=== PATIENT | female | born 1990 | race African-American/Black ===

== ENCOUNTER 2018-06-26 12:10 | Emergency (ER) | payer SELFPAY ==
[~2018-06-26] VITALS: Ht 162.6 cm; Wt 86.2 kg
[2018-06-26 12:13] VITALS: BP 120/60
[2018-06-26] MEDS ORDERED: ALBUTEROL SULFATE 2.5 MG/3 ML NEBU. ONE (12:22)
[2018-06-26] MEDS ORDERED: ALBUTEROL SULFATE 2.5 MG/3 ML NEBU. NEB ONE (12:30)
--- NOTE | 2018-06-26 13:44 | PHYS DOC ---
Past Medical History Past Medical History: Asthma Past Surgical History: Other Additional Past Surgical Histo: D&C Alcohol Use: Rarely Drug Use: None Adult General Chief Complaint Chief Complaint: ASTHMA HPI HPI Patient is a 27 year old female who presents with an acute asthma attack. The patient states that she had a prescription for an albuterol inhaler but she lost it. She started having wheezing and shortness of air that has increased. She is currently unable to make complete sentences. Review of Systems Review of Systems Constitutional: Denies fever or chills [] Eyes: Denies change in visual acuity, redness, or eye pain [] HENT: Denies nasal congestion or sore throat [] Respiratory: See history of present illness Cardiovascular: No additional information not addressed in HPI [] Neurologic: Denies headache, focal weakness or sensory changes [] Endocrine: Denies polyuria or polydipsia [] All other systems were reviewed and found to be within normal limits, except as documented in this note. Current Medications Current Medications Current Medications Medications (Trade) Dose Ordered Sig/Benedict Start Time Stop Time Status Last Admin Dose Admin Albuterol Sulfate (Ventolin Neb Soln) 2.5 mg STK-MED ONCE 06/26/18 12:22 06/26/18 12:23 DC Allergies Allergies Allergies Coded Allergies Type Severity Reaction Last Updated Verified Penicillins Allergy Unknown 06/26/18 Yes codeine Allergy Unknown 06/26/18 Yes Physical Exam Physical Exam Constitutional: Well developed, well nourished, no acute distress, non-toxic appearance. [] HENT: Normocephalic, atraumatic, bilateral external ears normal, oropharynx moist, no oral exudates, nose normal. [] Eyes: PERRLA, EOMI, conjunctiva normal, no discharge. [] Neck: Normal range of motion, no tenderness, supple, no stridor. [] Cardiovascular:Heart rate regular rhythm, no murmur [] Lungs & Thorax: Bilateral breath sounds show wheezing throughout. Abdomen: Bowel sounds normal, soft, no tenderness, no masses, no pulsatile masses. [] Neurologic: Alert and oriented X 3, normal motor function, normal sensory function, no focal deficits noted. [] Psychologic: Affect normal, judgement normal, mood normal. [] Current Patient Data Vital Signs Vital Signs Date Time Temp Pulse Resp B/P (MAP) Pulse Ox O2 Delivery O2 Flow Rate FiO2 06/26/18 12:26 98 Room Air 06/26/18 12:13 98.1 88 16 120/60 (80) 98.1 EKG EKG [] Radiology/Procedures Radiology/Procedures [] Course & Med Decision Making Course & Med Decision Making Pertinent Labs and Imaging studies reviewed. (See chart for details) []The patient received an albuterol treatment in the emergency department, she then left without informing any staff that she was leaving the building. Dragon Disclaimer Dragon Disclaimer This electronic medical record was generated, in whole or in part, using a voice recognition dictation system. 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 I was available for consultation as needed during the patient's visit in the emergency department. I agree with the clinical impression, plan, and disposition. Problem Qualifiers SALVATORE OGLESBY APRN Jun 26, 2018 13:44 JESSICA MELARA DO Jun 27, 2018 13:53
== END 2018-06-26 12:55 | disposition left against medical advice (07) ==
LOC: ER 12:10
DX: J45.901 Unspecified asthma with (acute) exacerbation (principal); Z88.5 Allergy status to narcotic agent; Z88.0 Allergy status to penicillin
CPT/HCPCS: 94640; 99283; J7613

== ENCOUNTER 2018-06-30 07:17 | Emergency (ER) | payer SELFPAY ==
[~2018-06-30] VITALS: Ht 165.1 cm; Wt 86.2 kg
[2018-06-30 07:18] VITALS: BP 154/70
[2018-06-30] MEDS ORDERED: IPRATRPIUM/ALBUTEROL 0.5/2.5MG 3 ML NEBU. ONE (07:25)
--- NOTE | 2018-06-30 07:28 | PHYS DOC ---
Past Medical History Past Medical History: Asthma Past Surgical History: Other Additional Past Surgical Histo: D&C Alcohol Use: Rarely Drug Use: None Adult General Chief Complaint Chief Complaint: ASTHMA HPI HPI Patient is a 27 year old female presenting with asthma exacerbation. She ran out of her rescue inhaler last night she really has not been sick she just woke up very short of breath coughing white sputum no fever history limited by respiration status Review of Systems Review of Systems Limited by respiration stress Current Medications Current Medications Current Medications Medications (Trade) Dose Ordered Sig/Benedict Start Time Stop Time Status Last Admin Dose Admin Albuterol Sulfate (Ventolin Neb Soln) 10 mg 1X ONCE 06/30/18 08:00 06/30/18 08:01 DC 06/30/18 08:00 10 MG Albuterol/ Ipratropium (Duoneb) 3 ml 1X ONCE 06/30/18 08:00 06/30/18 08:01 DC 06/30/18 07:32 3 ML Prednisone (Prednisone) 50 mg 1X ONCE 06/30/18 08:00 06/30/18 08:01 DC 06/30/18 07:32 50 MG Allergies Allergies Allergies Coded Allergies Type Severity Reaction Last Updated Verified Penicillins Allergy Unknown 06/26/18 Yes codeine Allergy Unknown 06/26/18 Yes Physical Exam Physical Exam Constitutional: Well developed, well nourished, distress, non-toxic appearance. [] HENT: Normocephalic, atraumatic, bilateral external ears normal, oropharynx moist, no oral exudates, nose normal. [] Eyes: PERRLA, EOMI, conjunctiva normal, no discharge. [] Neck: Normal range of motion, no tenderness, supple, no stridor. [] Cardiovascular:Heart rate regular rhythm, no murmur [] Lungs & Thorax: Wheezing bilaterally with respiratory distress noted speaking 2- 3 word sentences Abdomen: Bowel sounds normal, soft, no tenderness, no masses, no pulsatile masses. [] Skin: Warm, dry, no erythema, no rash. [] Back: No tenderness, no CVA tenderness. [] Extremities: No tenderness, no cyanosis, no clubbing, ROM intact, no edema. [] Neurologic: Alert and oriented X 3, normal motor function, normal sensory function, no focal deficits noted. [] Psychologic: Affect normal, judgement normal, mood normal. [] Current Patient Data Vital Signs Vital Signs Date Time Temp Pulse Resp B/P (MAP) Pulse Ox O2 Delivery O2 Flow Rate FiO2 06/30/18 07:54 98 Room Air 06/30/18 07:18 97.9 87 24 154/70 (98) 97.9 EKG EKG [] Radiology/Procedures Radiology/Procedures [] Course & Med Decision Making Course & Med Decision Making Pertinent Labs and Imaging studies reviewed. (See chart for details) []Patient is feeling much better after albuterol treatment in the emergency room chest x-ray is negative prescription for prednisone and albuterol was provided. Impressions were discussed patient voiced understanding. Dragon Disclaimer Dragon Disclaimer This electronic medical record was generated, in whole or in part, using a voice recognition dictation system. Departure Departure Impression: Primary Impression: Asthma Disposition: 01 HOME, SELF-CARE Condition: IMPROVED Referrals: UNKNOWN PCP NAME (PCP) Scripts Albuterol Sulfate (Proair Respiclick) 90 Mcg Aer.pow.ba 1 PUFF IH PRN Q6HRS PRN for SHORTNESS OF BREATH, #1 INHALER Prov: STORM GALLO MD 06/30/18 Prednisone (PREDNISONE) 50 Mg Tablet 1 TAB PO DAILY, #5 TAB Prov: STORM GALLO MD 06/30/18 STORM GALLO MD Jun 30, 2018 07:28
[2018-06-30] MEDS ORDERED: PRED50TA PO (07:29)
[2018-06-30] MEDS ORDERED: PROAIR RESPICL90 MCG IH (07:29)
[2018-06-30] MEDS ORDERED: IPRATRPIUM/ALBUTEROL 0.5/2.5MG 3 ML NEBU. NEB ONE (08:00)
[2018-06-30] MEDS ORDERED: ALBUTEROL SULFATE 2.5 MG/3 ML NEBU. CONT NEB ONE (08:00)
[2018-06-30] MEDS ORDERED: predniSONE 10 MG TABLET PO ONE (08:00)
--- NOTE | 2018-06-30 08:02 | RAD ---
Chest radiograph 06/30/2018 7:33 AM INDICATION: Shortness of air with history of asthma COMPARISON: None available TECHNIQUE: Portable upright frontal view of the chest is provided. FINDINGS: The cardiomediastinal silhouette is within normal limits. There are no pleural effusions. There is no pulmonary vascular congestion. There is no pneumothorax. The lungs are clear. Remote left clavicular deformity is visualized. IMPRESSION: No acute cardiopulmonary process. Electronically signed by: Bina Schulte MD (06/30/2018 7:58 AM) [facility]
== END 2018-06-30 08:56 | disposition home or self-care (01) ==
LOC: ER 07:17
DX: J45.901 Unspecified asthma with (acute) exacerbation (principal); Z88.0 Allergy status to penicillin; Z88.5 Allergy status to narcotic agent
CPT/HCPCS: 71045; 94644; 99285; J7512; J7613; J7620; 94640

== ENCOUNTER 2018-07-14 05:19 | Emergency (ER) | payer SELFPAY ==
[~2018-07-14] VITALS: Ht 165.1 cm; Wt 86.2 kg
[~2018-07-14 05:19] MED LIST: PRED50TA PO; PROAIR RESPICL90 MCG IH
--- NOTE | 2018-07-14 05:36 | PHYS DOC ---
Past Medical History Past Medical History: Asthma Past Surgical History: Other Additional Past Surgical Histo: D&C Alcohol Use: Rarely Drug Use: None Adult General Chief Complaint Chief Complaint: SHORTNESS OF BREATH HPI HPI Patient is a 27 year old f with cc of sob woke up with it has been intubated ran out of asthma meds recently no fever or recent illnesses coughing symptoms moderate worsening with tiem Review of Systems Review of Systems Constitutional: Denies fever or chills [] Cardiovascular: No additional information not addressed in HPI [] Musculoskeletal: Denies back pain or joint pain [] Integument: Denies rash or skin lesions [] Neurologic: Denies headache, focal weakness or sensory changes [] Endocrine: Denies polyuria or polydipsia [] All other systems were reviewed and found to be within normal limits, except as documented in this note. Current Medications Current Medications Current Medications Medications (Trade) Dose Ordered Sig/Benedict Start Time Stop Time Status Last Admin Dose Admin Albuterol/ Ipratropium (Duoneb) 3 ml 1X ONCE 07/14/18 06:45 07/14/18 06:46 DC 07/14/18 06:45 3 ML Prednisone (Prednisone) 50 mg 1X ONCE 07/14/18 05:45 07/14/18 05:46 DC 07/14/18 05:40 50 MG Allergies Allergies Allergies Coded Allergies Type Severity Reaction Last Updated Verified Penicillins Allergy Unknown 06/26/18 Yes codeine Allergy Unknown 06/26/18 Yes Physical Exam Physical Exam Constitutional: Well developed, well nourished, midl resp distress, non-toxic appearance. [] HENT: Normocephalic, atraumatic, bilateral external ears normal, oropharynx moist, no oral exudates, nose normal. [] Eyes: PERRLA, EOMI, conjunctiva normal, no discharge. [] Neck: Normal range of motion, no tenderness, supple, no stridor. [] Cardiovascular:Heart rate regular rhythm, no murmur [] Lungs & Thorax: wheezing noted with increased respiratory effort. speaking short sentences Abdomen: Bowel sounds normal, soft, no tenderness, no masses, no pulsatile masses. [] Skin: Warm, dry, no erythema, no rash. [] Back: No tenderness, no CVA tenderness. [] Extremities: No tenderness, no cyanosis, no clubbing, ROM intact, no edema. [] Neurologic: Alert and oriented X 3, normal motor function, normal sensory function, no focal deficits noted. [] Psychologic: Affect normal, judgement normal, mood normal. [] Current Patient Data Vital Signs Vital Signs Date Time Temp Pulse Resp B/P (MAP) Pulse Ox O2 Delivery O2 Flow Rate FiO2 07/14/18 08:25 102 15 105/58 (74) 96 Room Air 07/14/18 05:25 97.9 97.9 Lab Values Laboratory Tests Test 07/14/18 05:40 White Blood Count 7.1 x10^3/uL (4.0-11.0) Red Blood Count 4.59 x10^6/uL (3.50-5.40) Hemoglobin 11.6 g/dL (12.0-15.5) L Hematocrit 36.4 % (36.0-47.0) Mean Corpuscular Volume 79 fL (79-100) Mean Corpuscular Hemoglobin 25 pg (25-35) Mean Corpuscular Hemoglobin Concent 32 g/dL (31-37) Red Cell Distribution Width 15.5 % (11.5-14.5) H Platelet Count 179 x10^3/uL (140-400) Neutrophils (%) (Auto) 52 % (31-73) Lymphocytes (%) (Auto) 26 % (24-48) Monocytes (%) (Auto) 17 % (0-9) H Eosinophils (%) (Auto) 4 % (0-3) H Basophils (%) (Auto) 0 % (0-3) Neutrophils # (Auto) 3.7 x10^3uL (1.8-7.7) Lymphocytes # (Auto) 1.9 x10^3/uL (1.0-4.8) Monocytes # (Auto) 1.2 x10^3/uL (0.0-1.1) H Eosinophils # (Auto) 0.3 x10^3/uL (0.0-0.7) Basophils # (Auto) 0.0 x10^3/uL (0.0-0.2) Sodium Level 141 mmol/L (136-145) Potassium Level 4.3 mmol/L (3.5-5.1) Chloride Level 107 mmol/L (98-107) Carbon Dioxide Level 24 mmol/L (21-32) Anion Gap 10 (6-14) Blood Urea Nitrogen 23 mg/dL (7-20) H Creatinine 0.8 mg/dL (0.6-1.0) Estimated GFR (Cockcroft-Gault) 104.1 BUN/Creatinine Ratio 29 (6-20) H Glucose Level 87 mg/dL (70-99) Calcium Level 8.7 mg/dL (8.5-10.1) Total Bilirubin 0.3 mg/dL (0.2-1.0) Aspartate Amino Transferase (AST) 37 U/L (15-37) Alanine Aminotransferase (ALT) 31 U/L (14-59) Alkaline Phosphatase 57 U/L (46-116) Total Protein 6.8 g/dL (6.4-8.2) Albumin 2.9 g/dL (3.4-5.0) L Albumin/Globulin Ratio 0.7 (1.0-1.7) L Laboratory Tests 07/14/18 05:40 Laboratory Tests 07/14/18 05:40 EKG EKG [] Radiology/Procedures Radiology/Procedures [][facility] [address] [place] [address] IMAGING REPORT Signed PATIENT: THERESE CARLSON ACCOUNT: [id number] : 1990 LOCATION: ER AGE: 27 SEX: F EXAM STATUS: REG ER ORD. PHYSICIAN: STORM GALLO MD REASON: sob PROCEDURE: PORTABLE CHEST 1V AP chest x-ray HISTORY: Shortness of breath and cough, history of asthma. COMPARISON: Chest x-ray June 30, 2018. FINDINGS: Heart size normal. Mediastinal silhouette is normal. No pneumothorax, pulmonary opacities or pleural effusions. Old healed left clavicle fracture with deformity. IMPRESSION: No acute process. Electronically signed by: Solitario Sam MD (07/14/2018 7:40 AM) [facility] DICTATED and SIGNED BY: SOLITARIO SAM MD DATE: 07/14/18 0739 Course & Med Decision Making Course & Med Decision Making Pertinent Labs and Imaging studies reviewed. (See chart for details) asthma , duoneb prednisone, cxr. (2 AM sign out younger pending re-eval labs and cxr[] Patient felt much better at this time. She took the IV out herself, wanted to be discharged JOCELINE. Ramon Disclaimer Ramon Disclaimer This electronic medical record was generated, in whole or in part, using a voice recognition dictation system. Departure Departure Impression: Primary Impression: Asthma exacerbation Disposition: HOME, SELF-CARE Condition: IMPROVED Referrals: NO PCP (PCP) follow up with your family doctor next week for reevaluation. Patient Instructions: Asthma Attacks, Prevention, Asthma, Adult Scripts Prednisone (PREDNISONE ) 10 Mg Tablet 40 MG PO DAILY for 7 Days, #28 TAB 0 Refills Prov: MARCOS YOUNGER DO 07/14/18 STORM GALLO MD Jul 14, 2018 05:36 MARCOS YOUNGER DO Jul 14, 2018 08:40
[2018-07-14] MEDS ORDERED: predniSONE 10 MG TABLET PO ONE (05:45)
[2018-07-14] MEDS ORDERED: IPRATRPIUM/ALBUTEROL 0.5/2.5MG 3 ML NEBU. NEB ONE ×2 (05:45→06:45)
[2018-07-14 06:06] LABS: BASO % 0 % (0-3); EOS # 0.3 x10^3/uL (0.0-0.7); EOS % 4 % (0-3); HEMATOCRIT 36.4 % (36.0-47.0); HEMOGLOBIN 11.6 g/dL (12.0-15.5); LYMPH # 1.9 x10^3/uL (1.0-4.8); LYMPH % 26 % (24-48); MEAN CORPUSCULAR HEMOGLOBIN 25 pg (25-35); MEAN CORPUSCULAR HGB CONC 32 g/dL (31-37); MEAN CORPUSCULAR VOLUME 79 fL (79-100); MONO # 1.2 x10^3/uL (0.0-1.1); MONO % 17 % (0-9); NEUT # 3.7 x10^3uL (1.8-7.7); NEUT % 52 % (31-73); PLATELET COUNT 179 x10^3/uL (140-400); RED BLOOD COUNT 4.59 x10^6/uL (3.50-5.40); RED CELL DISTRIBUTION WIDTH 15.5 % (11.5-14.5); WHITE BLOOD COUNT 7.1 x10^3/uL (4.0-11.0)
[2018-07-14 06:50] LABS: ALBUMIN 2.9 g/dL (3.4-5.0)
[2018-07-14 06:55] LABS: ALBUMIN/GLOBULIN RATIO 0.7 (1.0-1.7); CALCIUM 8.7 mg/dL (8.5-10.1); CREATININE 0.8 mg/dL (0.6-1.0); GFR 104.1; POTASSIUM 4.3 mmol/L (3.5-5.1); TOTAL BILIRUBIN 0.3 mg/dL (0.2-1.0); TOTAL PROTEIN 6.8 g/dL (6.4-8.2)
--- NOTE | 2018-07-14 07:45 | RAD ---
AP chest x-ray HISTORY: Shortness of breath and cough, history of asthma. COMPARISON: Chest x-ray June 30, 2018. FINDINGS: Heart size normal. Mediastinal silhouette is normal. No pneumothorax, pulmonary opacities or pleural effusions. Old healed left clavicle fracture with deformity. IMPRESSION: No acute process. Electronically signed by: Mina Sam MD (07/14/2018 7:40 AM) [facility]
[2018-07-14 08:25] VITALS: BP 105/58
[2018-07-14] MEDS ORDERED: PRED-220 PO (08:40)
== END 2018-07-14 08:51 | disposition home or self-care (01) ==
LOC: ER 05:19
DX: J45.901 Unspecified asthma with (acute) exacerbation (principal); Z88.0 Allergy status to penicillin; Z88.5 Allergy status to narcotic agent
CPT/HCPCS: 36415; 71045; 80053; 85025; 94640; 99284; J7512; J7620

== ENCOUNTER 2018-07-31 03:47 | Emergency (ER) | payer SELFPAY ==
[~2018-07-31] VITALS: Ht 165.1 cm; Wt 86.2 kg
[~2018-07-31 03:47] MED LIST changes: +PRED-220 PO
[2018-07-31] MEDS ORDERED: IPRATRPIUM/ALBUTEROL 0.5/2.5MG 3 ML NEBU. ONE (03:53)
[2018-07-31] MEDS: IPRATRPIUM/ALBUTEROL 0.5/2.5MG 3 ML NEBU. NEB ONE (03:53)
[2018-07-31] MEDS: ALBUTEROL SULFATE 2.5 MG/3 ML NEBU. NEB ONE (04:06)
[2018-07-31 05:00] VITALS: BP 134/65
[2018-07-31] MEDS ORDERED: METH4TAB2 PO (05:12)
--- NOTE | 2018-07-31 05:12 | PHYS DOC ---
Past Medical History Past Medical History: Asthma Past Surgical History: Other Additional Past Surgical Histo: D&C Alcohol Use: Rarely Drug Use: None Adult General Chief Complaint Chief Complaint: ASTHMA HPI HPI Patient is a 27-year-old female who presents with complaint of asthma exacerbation that started yesterday and has progressively gotten worse. Patient states that she has been using her inhaler at home without relief. She admits to dry cough but is had no fever. Patient states that she is not sure what triggered this current episode. She thinks that it may have been the weather. Any chest pain but does complain of shortness of breath. Review of Systems Review of Systems Constitutional: Denies fever or chills [] HENT: Denies nasal congestion or sore throat [] Respiratory: Complains of dry cough, wheezing and shortness of breath [] Cardiovascular: No additional information not addressed in HPI [] Integument: Denies rash or skin lesions [] Current Medications Current Medications Current Medications Medications (Trade) Dose Ordered Sig/Benedict Start Time Stop Time Status Last Admin Dose Admin Albuterol Sulfate (Ventolin Neb Soln) 5 mg 1X ONCE 07/31/18 04:00 07/31/18 04:05 DC 07/31/18 04:06 5 MG Albuterol/ Ipratropium (Duoneb) 3 ml 1X ONCE 07/31/18 04:00 07/31/18 04:05 DC 07/31/18 03:53 3 ML Allergies Allergies Allergies Coded Allergies Type Severity Reaction Last Updated Verified Penicillins Allergy Unknown 06/26/18 Yes codeine Allergy Unknown 06/26/18 Yes Physical Exam Physical Exam Constitutional: Well developed, well nourished, no acute distress, non-toxic appearance. [] HENT: Normocephalic, atraumatic, bilateral external ears normal, oropharynx moist, no oral exudates, nose normal. [] Neck: Normal range of motion, no tenderness, supple, no stridor. [] Cardiovascular: Mildly tachycardic rate with regular rhythm [] Lungs & Thorax: Decreased breath sounds are noted bilaterally with coarse inspiratory and expiratory wheezes to auscultation [] Skin: Warm, dry, no erythema, no rash. [] Extremities: No tenderness, no cyanosis, no clubbing, ROM intact, no edema. [] Current Patient Data Vital Signs Vital Signs Date Time Temp Pulse Resp B/P (MAP) Pulse Ox O2 Delivery O2 Flow Rate FiO2 07/31/18 04:08 99 Room Air 07/31/18 03:55 97.6 87 24 125/60 (81) 97.6 EKG EKG [] Radiology/Procedures Radiology/Procedures [] Course & Med Decision Making Course & Med Decision Making Pertinent Labs and Imaging studies reviewed. (See chart for details) [] Dragon Disclaimer Dragon Disclaimer This electronic medical record was generated, in whole or in part, using a voice recognition dictation system. Departure Departure Impression: Primary Impression: Asthma Disposition: HOME, SELF-CARE Condition: STABLE Referrals: NO PCP (PCP) Patient Instructions: Asthma, Adult Scripts Methylprednisolone (MEDROL) 4 Mg Tab.ds.pk 1 PKG PO UD, #1 PKG Prov: COLBY CALDERA Jr. DO 07/31/18 Problem Qualifiers Primary Impression: Asthma Asthma severity: unspecified severity Asthma persistence: unspecified Asthma complication type: with acute exacerbation Qualified Codes: J45.901 - Unspecified asthma with (acute) exacerbation COLBY CALDERA Jr. DO Jul 31, 2018 05:12
== END 2018-07-31 05:30 | disposition home or self-care (01) ==
LOC: ER 03:47
DX: J45.901 Unspecified asthma with (acute) exacerbation (principal); R00.0 Tachycardia, unspecified; Z88.0 Allergy status to penicillin; Z88.5 Allergy status to narcotic agent
CPT/HCPCS: 94640; 99284; J7613; J7620

== ENCOUNTER 2020-03-20 05:14 | Emergency (ER) | payer SELFPAY ==
[~2020-03-20] VITALS: Ht 157.5 cm; Wt 50.0 kg
[~2020-03-20 05:14] MED LIST changes: +METH4TAB2 PO
[2020-03-20] MEDS ORDERED: MAGNESIUM SULFATE 2GM 50 ML IV ONE (05:30)
[2020-03-20] MEDS ORDERED: IPRATRPIUM/ALBUTEROL 0.5/2.5MG 3 ML NEBU. NEB ONE (05:30)
[2020-03-20] MEDS ORDERED: methylPREDNISolone SOD SUCC PF 125 MG/2 ML VIAL. IV ONE (05:30)
--- NOTE | 2020-03-20 05:36 | PHYS DOC ---
Past Medical History Past Medical History: Asthma (EL BENDER DO) Past Surgical History: Other Additional Past Surgical Histo: D&C (EL BENDER DO) Smoking Status: Never Smoker Alcohol Use: Rarely Drug Use: None (EL BENDER DO) General Adult EDM: Chief Complaint: SHORTNESS OF BREATH HPI: HPI: The history was obtained from the patient. Patient is a 29-year-old female with PMH asthma who presents with a chief complaint of shortness of breath. Patient states he is had progressive shortness of breath for the past several days. She notes she was seen at an outside hospital 5 days ago. She was given a short course of steroids and today is her last dose. She notes she is still felt wheezy and short of breath. She has been using her home inhaler every 2 hours and minimal relief. She does note a history of ventilator requirement due to asthma. He denies any fevers. She notes a dry cough. Does note some chest pain from breathing heavily and when she coughs. Denies syncope. Denies exposure to coronavirus that she knows of. Not follow with a shrimp picker but is in the process of getting follow-up with the [facility] asthma clinic. No other complaints. (EL BENDER DO) Review of Systems: Review of Systems: Constitutional: Denies fever or chills. [] Eyes: Denies change in visual acuity. [] HENT: Denies nasal congestion or sore throat. [] Respiratory: Positive for wheezes, cough, shortness of breath Cardiovascular: Denies chest pain or edema. [] GI: Denies abdominal pain, nausea, vomiting, bloody stools or diarrhea. [] : Denies dysuria. [] Musculoskeletal: Denies back pain or joint pain. [] Integument: Denies rash. [] Neurologic: Denies headache, focal weakness or sensory changes. [] Endocrine: Denies polyuria or polydipsia. [] Lymphatic: Denies swollen glands. [] Psychiatric: Denies depression or anxiety. [] (EL BENDER DO) Heart Score: Risk Factors: Risk Factors: DM, Current or recent (<one month) smoker, HTN, HLP, family history of CAD, obesity. Risk Scores: Score 0 - 3: 2.5% MACE over next 6 weeks - Discharge Home Score 4 - 6: 20.3% MACE over next 6 weeks - Admit for Clinical Observation Score 7 - 10: 72.7% MACE over next 6 weeks - Early Invasive Strategies (EL BENDER DO) Current Medications: Current Medications Medications (Trade) Dose Ordered Sig/Benedict Start Time Stop Time Status Last Admin Dose Admin Albuterol/ Ipratropium (Duoneb) 9 ml 1X ONCE 03/20/20 05:30 03/20/20 05:32 DC Magnesium Sulfate 50 ml @ 50 mls/hr 1X ONCE 03/20/20 05:30 03/20/20 06:29 Methylprednisolone Sodium Succinate (SOLU-Medrol 125MG VIAL) 125 mg 1X ONCE 03/20/20 05:30 03/20/20 05:32 DC (EL BENDER DO) Allergies: Allergies: Allergies Coded Allergies Type Severity Reaction Last Updated Verified Penicillins Allergy Unknown 06/26/18 Yes codeine Allergy Unknown 06/26/18 Yes (EL BENDER DO) Physical Exam: PE: Constitutional: Well developed, well nourished, no acute distress, non-toxic appearance. [] HENT: Normocephalic, atraumatic, bilateral external ears normal, oropharynx moist, no oral exudates, nose normal. [] Eyes: PERRLA, EOMI, conjunctiva normal, no discharge. [] Neck: Normal range of motion, no tenderness, supple, no stridor. [] Cardiovascular:Heart rate regular rhythm, no murmur [] Lungs & Thorax: Inspiratory expiratory wheezes noted in all lung hollis. Tachypneic. No accessory muscle usage noted. 95% on room air. Abdomen: soft, no tenderness, no masses, no pulsatile masses. [] Skin: Warm, dry, no erythema, no rash. [] Back: No tenderness, no CVA tenderness. [] Extremities: No tenderness, no cyanosis, no clubbing, ROM intact, no edema. [] Neurologic: Alert and oriented X 3, normal motor function, normal sensory function, no focal deficits noted. [] Psychologic: Affect normal, judgement normal, mood normal. [] (EL BENEDR DO) PE: Constitutional: Well developed, well nourished, no acute distress, non-toxic appearance HENT: Normocephalic, atraumatic Eyes: Conjunctiva normal, no discharge Neck: Normal range of motion, supple Lungs & Thorax: No respiratory distress, equal chest rise and fall Skin: Warm, dry, no erythema, no rash Extremities: No tenderness, ROM intact Neurologic: Alert and oriented X 3, no focal deficits noted Psychologic: Affect normal, judgment normal (JESSICA MELARA DO) EKG: EKG: [] (EL BENDER DO) EKG: @0654 NSR at 98bpm, NO ST elevation, QRS 90ms, QT/QTc 366/469ms (JESSICA MELARA DO) Radiology/Procedures: Radiology/Procedures: [] (EL BENDER DO) Radiology/Procedures: PROCEDURE: CHEST AP ONLY CHEST AP ONLY INDICATION: SHORT OF AIR. COMPARISON STUDY: 07/14/2018. FINDINGS: Lungs: Normal lung volume. No pulmonary mass or consolidation. The tracheobronchial tree and hilar structures are normal. Pleura: No pleural effusion or pneumothorax. Heart and Mediastinum: The cardiomediastinal silhouette is normal. The great vessels of the thorax are normal. Bones and Soft Tissues: The bones and soft tissues are within normal limits. IMPRESSION: No acute cardiopulmonary process. Electronically signed by: Car Snyder MD (03/20/2020 7:00 AM) [id number] (JESSICA MELARA DO) Course & Med Decision Making: Course & Med Decision Making Pertinent Labs and Imaging studies reviewed. (See chart for details) [] Patient is a 29-year-old female presents with chief complaint of wheezing and shortness of breath. She does note a history of asthma and states this feels similar. She does note that she is on her last day of an oral steroid that she was given approximately 4 days ago. My initial examination patient is tachypneic with inspiratory next Tory wheezes throughout. She will be given IV fluids, duo nebs, IV Solu-Medrol, and 2 g of magnesium. Reassessment pending. No indication for advanced airway management at this time. I have signed out the patient's emergency department care to Dr. Melara. We discussed the history, physical exam findings, completed and pending laboratory results and imaging studies. We have also discussed the current treatment plan and expected clinical course. Please refer to chart for the patient's remaining emergency department course, final disposition, and clinical impression(s). (EL BENDER DO) Course & Med Decision Making 0600- Sign out received from Dr. Bender for patient with SOA/wheezing and history of asthma. Patient pending laboratory and radiological studies. Labs reviewed. Hypokalemia addressed. CXR without acute process. Patient seen and evaluated by myself. Patient reports interval improvement of symptoms. Patient stable for discharge with outpatient follow-up with PCP. Discussed findings and plan with patient, who acknowledges understanding and agreement. (JESSICA MELARA DO) Dragon Disclaimer: Dragon Disclaimer: This electronic medical record was generated, in whole or in part, using a voice recognition dictation system. (EL BENDER DO) Departure Departure Impression: Primary Impression: Asthma Qualified Codes: J45.21 - Mild intermittent asthma with (acute) exacerbation Additional Impression: Hypokalemia Disposition: HOME, SELF-CARE Condition: STABLE Referrals: NO PCP (PCP) Patient Instructions: Asthma, Adult, [id number], Hypokalemia, Potassium Content of Foods Scripts Albuterol Sulfate (ALBUTEROL SULFATE NEB SOLN) 2.5 Mg/3 Ml Vial.neb 1 VIAL NEB PRN Q4HRS PRN for WHEEZING, #50 VIAL Prov: JESSICA MELARA DO 03/20/20 Prednisone (PREDNISONE) 20 Mg Tablet 2 TAB PO DAILY, #10 TAB Prov: JESSICA MELARA DO 03/20/20 Justicifation of Admission Dx: Justifications for Admission: Justification of Admission Dx: N/A (EL BENDER DO) Justification of Admission Dx: N/A (JESSICA MELARA DO) EL BENDER DO Mar 20, 2020 05:36 JESSICA MELARA DO Mar 20, 2020 07:12
[2020-03-20 05:45] LABS: BASO % 1 % (0-3); EOS # 0.3 x10^3/uL (0.0-0.7); EOS % 3 % (0-3); HEMATOCRIT 36.8 % (36.0-47.0); HEMOGLOBIN 12.3 g/dL (12.0-15.5); LYMPH # 1.3 x10^3/uL (1.0-4.8); LYMPH % 15 % (24-48); MEAN CORPUSCULAR HEMOGLOBIN 27 pg (25-35); MEAN CORPUSCULAR HGB CONC 33 g/dL (31-37); MEAN CORPUSCULAR VOLUME 80 fL (79-100); MONO # 0.9 x10^3/uL (0.0-1.1); MONO % 11 % (0-9); NEUT # 5.8 x10^3/uL (1.8-7.7); NEUT % 70 % (31-73); PLATELET COUNT 254 x10^3/uL (140-400); RED BLOOD COUNT 4.59 x10^6/uL (3.50-5.40); RED CELL DISTRIBUTION WIDTH 17.7 % (11.5-14.5); WHITE BLOOD COUNT 8.3 x10^3/uL (4.0-11.0)
[2020-03-20 05:56] LABS: CALCIUM 8.4 mg/dL (8.5-10.1); CREATININE 0.9 mg/dL (0.6-1.0); GFR 89.6; POTASSIUM 3.1 mmol/L (3.5-5.1)
[2020-03-20] MEDS ORDERED: ACETAMINOPHEN 500 MG TABLET PO ONE (06:00)
[2020-03-20] MEDS ORDERED: IV NORMAL SALINE 1000ML BAG 1,000 ML IV ONE (06:30)
[2020-03-20] MEDS ORDERED: POTASSIUM CHLORIDE 20 MEQ TABLET.ER. PO ONE (07:00)
--- NOTE | 2020-03-20 07:03 | RAD ---
CHEST AP ONLY INDICATION: SHORT OF AIR. COMPARISON STUDY: 07/14/2018. FINDINGS: Lungs: Normal lung volume. No pulmonary mass or consolidation. The tracheobronchial tree and hilar structures are normal. Pleura: No pleural effusion or pneumothorax. Heart and Mediastinum: The cardiomediastinal silhouette is normal. The great vessels of the thorax are normal. Bones and Soft Tissues: The bones and soft tissues are within normal limits. IMPRESSION: No acute cardiopulmonary process. Electronically signed by: Car Snyder MD (03/20/2020 7:00 AM) [id number]
[2020-03-20 07:11] VITALS: BP 132/78
[2020-03-20] MEDS ORDERED: PRED20TA PO ×2 (07:11→07:18)
[2020-03-20] MEDS ORDERED: ALBU2.5V5 NEB (07:18)
--- NOTE | 2020-03-20 07:18 | EKG ---
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
== END 2020-03-20 07:47 | disposition home or self-care (01) ==
LOC: ER 05:14
DX: J45.21 Mild intermittent asthma with (acute) exacerbation (principal); R07.89 Other chest pain; R05 Cough; E87.6 Hypokalemia; J45.909 Unspecified asthma, uncomplicated; Z98.890 Other specified postprocedural states; Z88.0 Allergy status to penicillin; Z88.5 Allergy status to narcotic agent
CPT/HCPCS: 36415; 71045; 80048; 81025; 83735; 85025; 93005; 94640; 96361; 96374; 99285; J2930; J7030